=== PATIENT | male | born 1985 | race Caucasian/White ===

== ENCOUNTER 2022-11-17 19:03 | Emergency (ER) | payer SELFPAY ==
[2022-11-17] MEDS ORDERED: Cetirizine 10 MG Tab PO ONE (20:27)
== END 2022-11-17 20:50 | disposition home or self-care (01) ==
LOC: JD.ED 19:03
DX: H65.193 Other acute nonsuppurative otitis media, bilateral (principal)
CPT/HCPCS: 99282; 99283